=== PATIENT | male | born 1985 | race Caucasian/White ===

== ENCOUNTER 2016-10-27 07:54 | Emergency (ER) | payer OTHER ==
[~2016-10-27] VITALS: Ht 180.3 cm; Wt 78.5 kg
[~2016-10-27 07:54] MED LIST: ALBUTEROL SULF8.5 GM INH; ALPRAZOLAM0.25 MG ORAL; AZITHROMYCIN250 MG ORAL; BACTRIM DS TAB1 EAC1 ORAL; BUPROPION XL300 MG ORAL; IBUPROFEN600 MG ORAL; IBUPROFEN800 MG ORAL; KEFLEX500 MG ORAL; NKM; NORCO 5-325 TA1 EACH ORAL; QUETIAPINE FUMA25 MG ORAL; SEROQUEL100 MG ORAL; WELLBUTRIN XL150 M1 ORAL
[2016-10-27] MEDS ORDERED: ALPRAZolam 0.5mg tab ORAL ONE (08:30)
[2016-10-27] MEDS ORDERED: LITHIUM CARBON300 M1 PO (09:15)
[2016-10-27] MEDS ORDERED: ALPRAZOLAM1 MG ORAL (09:15)
[2016-10-27] MEDS ORDERED: DILANTIN100 MG ORAL (09:15)
[2016-10-27] MEDS ORDERED: BENZTROPINE MESY1 MG PO (09:39)
[2016-10-27 09:45] VITALS: BP 120/80
--- NOTE | 2016-10-29 07:46 | Emergency Room Report ---
History of Present Illness General Chief Complaint: Behavioral Complaint Source: Patient Present Illness HPI 31-year-old male presents ED complaining of feeling depressed and anxious. Patient came from street. Patient has history of anxiety and depression. Patient is on multiple medications but states he ran out of his medications. Denies hearing voices. Denies suicidal or homicidal ideation. admits to drug use. Patient is also requesting [facility] referral to mental health referral. No other aggravating or relieving factors. Denies any other associated symptoms Allergies: Coded Allergies: No Known Allergies (Unverified , 01/30/15) Patient History Past Medical History: asthma, psych hx Past Surgical History: none Pertinent Family History: none Social History: Denies: alcohol use, drug use, smoking Immunizations: UTD Reviewed Nursing Documentation: PMH: Agreed, PSxH: Agreed Nursing Documentation-PMH Past Medical History: No History, Except For Hx Asthma: Yes Hx Seizures: Yes Review of Systems All Other Systems: negative except mentioned in HPI Physical Exam Vital Signs Date Time Temp Pulse Resp B/P Pulse Ox O2 Delivery O2 Flow Rate FiO2 10/27/16 08:11 97.7 108 16 103/66 92 Room Air Sp02 EP Interpretation: reviewed, normal General Appearance: no apparent distress, alert, GCS 15, non-toxic Head: normocephalic, atraumatic Eyes: bilateral eye PERRL, bilateral eye normal inspection ENT: hearing grossly normal, normal pharynx, no angioedema, normal voice Neck: full range of motion, supple/symm/no masses Respiratory: chest non-tender, lungs clear, normal breath sounds, speaking full sentences Cardiovascular #1: regular rate, rhythm, no edema Cardiovascular #2: 2+ carotid (R), 2+ carotid (L), 2+ radial (R), 2+ radial (L) , 2+ dorsalis pedis (R), 2+ dorsalis pedis (L) Gastrointestinal: normal bowel sounds, non tender, soft, non-distended, no guarding, no rebound Rectal: deferred Genitourinary: normal inspection, no CVA tenderness Musculoskeletal: back normal, gait/station normal, normal range of motion, non- tender Neurologic: alert, oriented x3, responsive, motor strength/tone normal, sensory intact, speech normal Psychiatric: judgement/insight normal, memory normal, no suicidal/homicidal ideation, no delusions, anxious Reflexes: 3+ bicep (R), 3+ bicep (L), 3+ tricep (R), 3+ tricep (L), 3+ knee (R) , 3+ knee (L) Skin: normal color, no rash, warm/dry, well hydrated Lymphatic: no adenopathy Medical Decision Making Diagnostic Impression: Primary Impression: Substance abuse Additional Impression: Anxiety ER Course 31-year-old male presents to ED feeling very anxious. No SI or HI. History of drug use. Differential-EtOH, psychosis, anxiety, substance abuse Patient placed on stretcher. After initial history and physical I ordered Ativan for anxiety. On reassessment patient states he feels better. Wishes to be discharged. patient is not displaying any signs of suicidal or homicidal ideation. Nontender to himself or others. Patient will be discharged with referrals for shelters and substance abuse centers Patient is requesting refills of some of his psychiatric medications and his seizure medications. I agreed to refill his medications Diagnosis-substance abuse, anxiety Stable and discharged to pen[facility]iary. Followup with PMD. Return to ED if symptoms recur or worsen Last Vital Signs Date Time Temp Pulse Resp B/P Pulse Ox O2 Delivery O2 Flow Rate FiO2 10/27/16 09:45 97.8 88 16 120/80 98 Room Air Status: improved Disposition: HOME, SELF-CARE Condition: Stable Scripts Benztropine Mesylate* (BENZTROPINE MESYLATE*) 1 Mg Tablet 1 MG PO DAILY, #10 TAB Prov: ADAMA ORTIZ M.D. 10/27/16 Phenytoin Sodium Extended* (DILANTIN*) 100 Mg Capsule 100 MG ORAL THREE TIMES A DAY, #90 CAP 0 Refills Prov: ADAMA ORTIZ M.D. 10/27/16 Gazelle Carbonate (LITHIUM CARBONATE) 300 Mg Tablet 300 MG PO DAILY, #30 TAB Prov: ADAMA ORTIZ M.D. 10/27/16 Alprazolam* (XANAX*) 1 Mg Tablet 1 MG ORAL TID, #20 TAB Prov: ADAMA ORTIZ M.D. 10/27/16 Patient Instructions: Stimulant Use Disorder-Methamphetamines ADAMA ORTIZ M.D. Oct 29, 2016 07:46
== END 2016-10-27 09:47 | disposition home or self-care (01) ==
LOC: EDBD 07:54 → EMR 08:20
DX: F41.9 Anxiety disorder, unspecified (principal); F19.10 Other psychoactive substance abuse, uncomplicated; F32.9 Major depressive disorder, single episode, unspecified; J45.909 Unspecified asthma, uncomplicated
CPT/HCPCS: 99284

== ENCOUNTER 2017-10-02 10:33 | Emergency (ER) | payer OTHER ==
[~2017-10-02] VITALS: Ht 185.4 cm; Wt 74.8 kg
[~2017-10-02 10:33] MED LIST changes: +ALPRAZOLAM1 MG ORAL; +BENZTROPINE MESY1 MG PO; +DILANTIN100 MG ORAL; +LITHIUM CARBON300 M1 PO
[2017-10-02] MEDS ORDERED: PREDNISONE20 MG ORAL (11:28)
[2017-10-02] MEDS ORDERED: ALPRAZOLAM0.25 MG ORAL (11:28)
[2017-10-02 11:34] VITALS: BP 131/71
[2017-10-02 11:35] VITALS: BP 131/71
--- NOTE | 2017-10-06 22:21 | Emergency Room Report ---
History of Present Illness General Chief Complaint: Upper Respiratory Illness Source: Patient Present Illness HPI Patient presents with complaints of cough Requesting cough syrup patient reports that he was across the street at his primary physician's office was not able to be seen he also is on anti-anxiety medicine And requesting prescription of that Denies any chest pain he has had a cough however describes a fairly chronic component that He denies any abdominal pain denies any recent travel denies any pleurisy Allergies: Coded Allergies: No Known Allergies (Unverified , 01/30/15) Patient History Past Medical History: see triage record Pertinent Family History: none Reviewed Nursing Documentation: PMH: Agreed, PSxH: Agreed Nursing Documentation-PMH Past Medical History: No History, Except For Hx Asthma: Yes Hx Seizures: Yes Review of Systems All Other Systems: negative except mentioned in HPI Physical Exam Vital Signs Date Time Temp Pulse Resp B/P (MAP) Pulse Ox O2 Delivery O2 Flow Rate FiO2 10/02/17 10:53 98.1 93 17 131/71 95 Room Air Sp02 EP Interpretation: reviewed, normal General Appearance: well appearing, no apparent distress Head: normocephalic, atraumatic Eyes: bilateral eye PERRL, bilateral eye EOMI ENT: hearing grossly normal, normal pharynx, TMs + canals normal, uvula midline Neck: full range of motion, supple, no meningismus, no bony tend Respiratory: lungs clear, normal breath sounds, no rhonchi, no respiratory distress, no retraction, no accessory muscle use Cardiovascular #1: normal peripheral pulses, regular rate, rhythm, no edema, no gallop, no JVD, no murmur Gastrointestinal: normal bowel sounds, non tender, soft, no mass, no organomegaly, non-distended, no guarding, no hernia, no pulsatile mass, no rebound Genitourinary: no CVA tenderness Musculoskeletal: normal inspection Neurologic: oriented x3, responsive, group therapy counselor III-XII nml as tested, motor strength/ tone normal, sensory intact Psychiatric: mood/affect normal Skin: normal color, no rash, warm/dry, palpation normal Lymphatic: normal inspection, no adenopathy Medical Decision Making Diagnostic Impression: Primary Impression: bronchitis ER Course Given the patient's presentation and history appears to have findings of bronchitis some chronic component I did discuss with the patient that we were not able to prescribe promethazine with codeine patient also requires close follow up with his primary physician for anxiolytic medication In a stable for close outpatient followup Last Vital Signs Date Time Temp Pulse Resp B/P (MAP) Pulse Ox O2 Delivery O2 Flow Rate FiO2 10/02/17 11:35 98.1 93 18 131/71 95 Room Air Status: improved Disposition: HOME, SELF-CARE Condition: Stable Scripts Prednisone* (PREDNISONE*) 20 Mg Tablet 20 MG ORAL BID, #6 TAB Prov: PETTY NEWTON D.O. 10/02/17 Alprazolam* (XANAX*) 0.25 Mg Tablet 0.5 MG ORAL BID Y for For Anxiety, #10 TAB Prov: PETTY NEWTON D.O. 10/02/17 Referrals: NOT CHOSEN IPA/MD,REFERRING Patient Instructions: Upper Respiratory Infection, Adult Additional Instructions: Patient is provided with the discharge instructions notified to follow up with primary doctor in the next 2-3 days otherwise return to the er with any worsening symptoms. Please note that this report is being documented using [employer] technology. This can lead to erroneous entry secondary to incorrect interpretation by the dictating instrument. PETTY NEWTON D.O. Oct 06, 2017 22:21
== END 2017-10-02 11:35 | disposition home or self-care (01) ==
LOC: EMR 11:35
DX: J45.909 Unspecified asthma, uncomplicated (principal); Z86.69 Personal history of other diseases of the nervous system and sense organs
CPT/HCPCS: 99282

== ENCOUNTER 2017-11-14 21:57 | Emergency (ER) | payer OTHER ==
[~2017-11-14] VITALS: Ht 185.4 cm; Wt 77.1 kg
[~2017-11-14 21:57] MED LIST changes: +PREDNISONE20 MG ORAL
[2017-11-14 22:15] VITALS: BP 132/73
[2017-11-14] MEDS ORDERED: IBUPROFEN600 MG ORAL (22:33)
--- NOTE | 2017-11-14 22:34 | Emergency Room Report ---
History of Present Illness General Chief Complaint: Flu Like Symptoms Source: Patient Present Illness HPI Is a 32-year-old male with no past medical history but does have a history of substance abuse. He presents with chief complaint of flulike illness. Onset for week. Subjective fever and chills. Coughing congestion. No other complaint. Generalized body pain. Allergies: Coded Allergies: No Known Allergies (Unverified , 01/30/15) Patient History Past Medical History: see triage record, old chart reviewed Past Surgical History: none Pertinent Family History: none Social History: Reports: smoking, drug use Immunizations: other Reviewed Nursing Documentation: PMH: Agreed, PSxH: Agreed Nursing Documentation-PMH Hx Asthma: Yes Hx Seizures: Yes Review of Systems Constitutional: Reports: fever Eye: Denies: eye pain, blurred vision ENT: Reports: nose congestion, Denies: throat swelling Respiratory: Reports: cough, Denies: shortness of breath Cardiovascular: Denies: chest pain, palpitations Gastrointestinal: Denies: abdominal pain, diarrhea, nausea, vomiting Musculoskeletal: Denies: back pain, joint pain Skin: Denies: rash Neurological: Denies: headache, numbness Endocrine: Denies: increased thirst, increased urine Hematologic/Lymphatic: Denies: easy bruising All Other Systems: negative except mentioned in HPI Physical Exam Vital Signs Date Time Temp Pulse Resp B/P (MAP) Pulse Ox O2 Delivery O2 Flow Rate FiO2 11/14/17 22:06 98.5 113 18 132/73 96 Room Air 98.4 vitals normal Sp02 EP Interpretation: reviewed, normal General Appearance: well appearing, no apparent distress, alert Head: normocephalic, atraumatic Eyes: bilateral eye PERRL, bilateral eye EOMI ENT: hearing grossly normal, normal pharynx, other - bilateral canals are impacted with cerumen Neck: full range of motion, supple, no meningismus Respiratory: chest non-tender, lungs clear, normal breath sounds Cardiovascular #1: regular rate, rhythm, no murmur Gastrointestinal: normal bowel sounds, non tender, no mass, no organomegaly, no bruit, non-distended Musculoskeletal: back normal, gait/station normal, normal range of motion Psychiatric: mood/affect normal Skin: warm/dry Medical Decision Making Diagnostic Impression: Primary Impression: Influenza-like symptoms Additional Impression: Impacted cerumen of both ears ER Course Patient with a viral illness. Lungs are clear. I try to remove cerumen and he started complaining of pain. He claimed that I perforated his eardrum even no the curet was only touching the wax. I see no bacterial infection. We'll discharge home. Last Vital Signs Date Time Temp Pulse Resp B/P (MAP) Pulse Ox O2 Delivery O2 Flow Rate FiO2 11/14/17 22:06 98.5 113 18 132/73 96 Room Air 98.4 Status: improved Disposition: HOME, SELF-CARE Condition: Stable Scripts Ibuprofen* (MOTRIN*) 600 Mg Tablet 600 MG ORAL Q6H Y for For Pain, #30 TAB Prov: VILMA DAVIDSON M.D. 11/14/17 Additional Instructions: Follow-up with your Dr. 7 days. Abstain from drugs and alcohol. Return if worse. VILMA DAVIDSON M.D. Nov 14, 2017 22:34
[2017-11-14 22:39] VITALS: BP 132/73
== END 2017-11-14 22:39 | disposition home or self-care (01) ==
LOC: EMR 22:34
DX: J11.1 Influenza due to unidentified influenza virus with other respiratory manifestations (principal); H61.23 Impacted cerumen, bilateral; J45.909 Unspecified asthma, uncomplicated; F17.200 Nicotine dependence, unspecified, uncomplicated; F19.10 Other psychoactive substance abuse, uncomplicated
CPT/HCPCS: 99283